=== PATIENT | female | born 1955 | race African-American/Black ===

== ENCOUNTER → 2021-03-24 | Outpatient (CLI) | payer BC | LOC: SJCVCIMAG 03-06 07:58 | PROVIDERS: ATTEND Internal Medicine Cardiovascular Disease | DX: I25.10 Atherosclerotic heart disease of native coronary artery without angina pectoris (principal); R07.9 Chest pain, unspecified; I10 Essential (primary) hypertension; K21.9 Gastro-esophageal reflux disease without esophagitis; Z79.82 Long term (current) use of aspirin; Z79.899 Other long term (current) drug therapy; Z72.89 Other problems related to lifestyle ==